=== PATIENT | female | born 1975 | race Caucasian/White ===

== ENCOUNTER 2016-06-08 22:06 | Emergency (ER) | payer OTHER ==
[~2016-06-08] VITALS: Ht 160 cm; Wt 72.6 kg
[2016-06-08 22:12] VITALS: BP 140/83
--- NOTE | 2016-06-08 22:47 | NUR ---
TO ER BED 8
--- NOTE | 2016-06-08 22:47 | NUR ---
PT CAME TO ER WITH C/O SEVERE HEADACHE X3 DAYS. PT IS AAOX4, NO N/V NOTED, NO SOB/DISTRESS, BREATHING EVEN AND UNLABORED, AFRIBRILE, SKIN IS INTACT, ABLE TO MOVE ALL EXTREMITIES. PT IS POSITION COMFORT IN BED, FALL PRECAUTION IN PLACE, ED MD AWARE OF PT'S CONDITION.
--- NOTE | 2016-06-08 23:03 | NUR ---
PT IS EVALUATED BY ED MD AT BEDSIDE.
[2016-06-08] MEDS ORDERED: KETOROLAC 60 MG/2 ML VIAL IM ONE (23:05)
[2016-06-09 00:30] VITALS: BP 120/72
--- NOTE | 2016-06-09 00:30 | NUR ---
Patient discharged with v/s stable. Written and verbal after care instructions given and explained BY DR. CLARK. Patient alert, oriented and verbalized understanding of instructions. Ambulatory with steady gait. All questions addressed prior to discharge. ID band removed. Patient advised to follow up with PMD. Rx of NAPROSYN given. Patient educated on indication of medication including possible reaction and side effects. Opportunity to ask questions provided and answered.
== END 2016-06-09 00:30 | disposition home or self-care (01) ==
LOC: MED 22:06
PROC: 3E033GC Introduction of Other Therapeutic Substance into Peripheral Vein, Percutaneous Approach (ICD-10-PCS; principal; 2016-06-08)
DX: G44.209 Tension-type headache, unspecified, not intractable (principal)
CPT/HCPCS: 81002; 81025; 96372; 99283; J1885

== ENCOUNTER 2016-12-23 15:51 | Emergency (ER) | payer OTHER ==
[~2016-12-23] VITALS: Ht 160 cm; Wt 70.3 kg
[2016-12-23 16:05] VITALS: BP 146/89
--- NOTE | 2016-12-23 16:14 | NUR ---
PT AMBULATED TO BED 5.
--- NOTE | 2016-12-23 16:17 | NUR ---
41F BIB SELF C/O ANTERIOR HEADACHE WITH DIZZINESS, PT DESCRIBES "FREEZING", RADIATES TO POSTERIOR HEAD, 8/10 X 2 WEEKS; PT STATES NO TRAUMA OR INJURY TO SITE AT THIS TIME; PT AA&OX4, PERRLA, STATES NO BLURRY VISION OR VISION CHANGES AT THIS TIME; PT STATES NO N/V/D AT THIS TIME; BL LUNG SOUNDS CLEAR, RR EVEN/UNLABORED, SKIN IS WARM/DRY/INTACT AT THIS TIME; STEADY GAIT; PT RESTING IN BED WITH HOB ELEVATED AND IN LOWEST POSITION; POSITIONED FOR COMFORT; ER MD MADE AWARE OF STATUS. WILL CONTINUE TO MONITOR.
--- NOTE | 2016-12-23 16:28 | NUR ---
ER MD DR. STEWART EVALUATING PT AT BEDSIDE.
[2016-12-23] MEDS ORDERED: KETOROLAC 60 MG/2 ML VIAL IM ONE (16:40)
[2016-12-23 17:07] VITALS: BP 134/78
--- NOTE | 2016-12-23 17:07 | NUR ---
Patient discharged with v/s stable. Written and verbal after care instructions given and explained. Patient alert, oriented and verbalized understanding of instructions. Ambulatory with . All questions addressed prior to discharge. ID band removed. Patient advised to follow up with PMD. Rx of MOTRIN 800MG TAB given. Patient educated on indication of medication including possible reaction and side effects. Opportunity to ask questions provided and answered.
== END 2016-12-23 17:07 | disposition home or self-care (01) ==
LOC: MED 15:51
DX: G44.209 Tension-type headache, unspecified, not intractable (principal); R03.0 Elevated blood-pressure reading, without diagnosis of hypertension; Z88.6 Allergy status to analgesic agent; Z88.5 Allergy status to narcotic agent
CPT/HCPCS: 96372; 99283; J1885

== ENCOUNTER 2019-07-26 02:10 | Emergency (ER) | payer MEDICAID, OTHER ==
[~2019-07-26] VITALS: Ht 160 cm; Wt 77.1 kg
[2019-07-26 02:16] VITALS: BP 156/94
--- NOTE | 2019-07-26 02:21 | NUR ---
VISUAL ACUITY PERFORMED RESULTS FOLLOWS: OD-20/20 OS-20/20 OU-20/15
--- NOTE | 2019-07-26 02:24 | NUR ---
44/F FROM TRIAGE FOR C/O BILATERAL EYE IRRITATION AND REDNESS X 4 DAYS. DENIES INJURY/TRAUMA. DENIES ANY PAIN. NO VISUAL CHANGES REPORTED. IN BED FOR MSE. VISUAL ACUITY PERFORMED IN TRIAGE.
--- NOTE | 2019-07-26 02:25 | NUR ---
DR ALMAZAN AT BEDSIDE EVALUATING PT.
--- NOTE | 2019-07-26 02:45 | NUR ---
Patient discharged with v/s stable. Written and verbal after care instructions about allergic conjunctivitis given and explained. Patient alert, oriented and verbalized understanding of instructions. Ambulatory with steady gait. All questions addressed prior to discharge. ID band removed. Patient advised to follow up with PMD. Rx of ketoifen fumarate given. Patient educated on indication of medication including possible reaction and side effects. Opportunity to ask questions provided and answered.
[2019-07-26 02:46] VITALS: BP 156/94
== END 2019-07-26 02:45 | disposition home or self-care (01) ==
LOC: MED 02:10
DX: H10.13 Acute atopic conjunctivitis, bilateral (principal); Z88.2 Allergy status to sulfonamides; Z88.6 Allergy status to analgesic agent
CPT/HCPCS: 99282

== ENCOUNTER 2020-01-26 05:55 | Emergency (ER) | payer MEDICAID, OTHER ==
[~2020-01-26] VITALS: Ht 160 cm; Wt 68.0 kg
[2020-01-26 05:58] VITALS: BP 156/89
--- NOTE | 2020-01-26 06:16 | NUR ---
ERMD AT BEDSIDE EVALUATING PT.
--- NOTE | 2020-01-26 06:20 | NUR ---
PT EVALUATED AND TREATED BY ER MD NO NURSING INTERVENTIONS NEEDED.
[2020-01-26 06:32] VITALS: BP 156/89
--- NOTE | 2020-01-26 06:32 | NUR ---
Patient discharged with v/s stable. Written and verbal after care instructions given and explained. Patient verbalized understanding. Ambulatory with steady gait. All questions addressed prior to discharge. Advised to follow up with PMD.
== END 2020-01-26 06:32 | disposition home or self-care (01) ==
LOC: MED 05:55
DX: J31.0 Chronic rhinitis (principal); R03.0 Elevated blood-pressure reading, without diagnosis of hypertension; Z88.6 Allergy status to analgesic agent
CPT/HCPCS: 99281; 99283

== ENCOUNTER 2020-02-05 02:01 | Emergency (ER) | payer OTHER ==
[~2020-02-05] VITALS: Ht 160 cm; Wt 65.8 kg
[2020-02-05 02:05] VITALS: BP 110/79
--- NOTE | 2020-02-05 03:11 | NUR ---
PT AMBULATED TO BED 11
--- NOTE | 2020-02-05 04:20 | NUR ---
PT ASSESSMENT COMPLETED BY ILAN , NO NURSING INTERVENTIONS NEEDED AT THIS TIME.
[2020-02-05 04:25] VITALS: BP 115/82
--- NOTE | 2020-02-05 04:25 | NUR ---
Patient discharged with v/s stable. Written and verbal after care instructions given and explained. Patient alert, oriented and verbalized understanding of instructions. Ambulatory with steady gait. All questions addressed prior to discharge. ID band removed. Patient advised to follow up with PMD. Rx of BACTRIM & MOTRIN given. Patient educated on indication of medication including possible reaction and side effects. Opportunity to ask questions provided and answered.
== END 2020-02-05 04:25 | disposition home or self-care (01) ==
LOC: MED 02:01
DX: L98.499 Non-pressure chronic ulcer of skin of other sites with unspecified severity (principal); Z88.5 Allergy status to narcotic agent; Z88.6 Allergy status to analgesic agent
CPT/HCPCS: 99284

== ENCOUNTER 2021-08-07 19:42 | Emergency (ER) | payer OTHER ==
[~2021-08-07] VITALS: Ht 160 cm; Wt 63.5 kg
[2021-08-07 20:04] VITALS: BP 139/84
[2021-08-07] MEDS ORDERED: IBUP-2213 PO (20:30)
[2021-08-07 20:46] VITALS: BP 128/68
== END 2021-08-07 20:40 | disposition home or self-care (01) ==
LOC: MED 19:42
DX: R50.9 Fever, unspecified (principal); Z88.6 Allergy status to analgesic agent; Z88.5 Allergy status to narcotic agent
CPT/HCPCS: 99282